=== PATIENT | female | born 1950 | race Caucasian/White ===

== ENCOUNTER 2022-12-28 12:31 | Emergency (ER) | payer MEDICARE, OTHER, SELFPAY ==
[2022-12-28 12:37] VITALS: BP 190/81; PULSE 63; RESP 20; TEMP 36.6; O2SAT 99; BMI 22.7
--- NOTE | 2022-12-28 13:02 | DI.US.S_ITS ---
PROCEDURE: US PERIPH VENOUS LOW EXTREM LT INDICATIONS: SWELLING AND PAIN AFTER TRAVEL TECHNIQUE: Real-time imaging, as well as color and pulse Doppler interrogation, were performed of the lower extremity deep veins from the inguinal ligament to the popliteal fossa, with documentation of the visualized calf veins. COMPARISON: None. FINDINGS: The common femoral, femoral, popliteal, and the visualized calf veins are normally compressible, and free of intraluminal thrombus. Color and pulse Doppler demonstrate normal phasic intraluminal flow. There is normal augmentation response to distal compression maneuver. A Roberson's cyst measures 4.7 x 1.0 x 2.3 cm. Distal to the Roberson's cyst a complex fluid collection measures 3.7 x 0.6 x 1.6 cm, likely a ruptured Roberson cyst. IMPRESSION: 1. No findings of lower extremity deep venous thrombosis. 2. Ruptured Roberson's cyst. Dictated by: Paco Sheikh M.D. on 12/28/2022 at 13:44 Approved by: Paco Sheikh M.D. on 12/28/2022 at 13:44
[2022-12-28 14:08] VITALS: O2SAT 96
[2022-12-28 14:09] VITALS: BP 190/78; PULSE 63; PULSE 64; O2SAT 99
--- NOTE | 2022-12-28 14:21 | ED.LOWEXIN ---
HPI - Extremity Injury (Lower) <WENDY Hancock - Last Filed: 12/28/22 14:34> General Chief Complaint: Extremity Injury, Lower Stated Complaint: Leg swelling, Pain Time Seen by Provider: 12/28/22 14:07 Source: patient Mode of arrival: Ambulatory History of Present Illness HPI Narrative: This is a 72 year old female who presents to the emergency department with left lower leg swelling and pain which has been progressive since her [address] She denies any recent injury. States that she has swelling and some tenderness behind her left knee and on the medial aspect into her proximal calf. She states that she plays pickleball frequently but has not had any injuries. States that her mom from a blood clot suddenly at a young age so she was worried about this and came in for evaluation before a trip. She denies history of gout, fever chills, discoloration to the skin or rash. Related Data Allergies Allergy/AdvReac Type Severity Reaction Status Date / Time No Known Drug Allergies Allergy Verified 12/28/22 12:43 Review of Systems <WENDY Hancock - Last Filed: 12/28/22 14:34> Review of Systems ROS Unobtainable: All systems reviewed & are unremarkable except as noted in HPI and below Patient History <WENDY Hancock - Last Filed: 12/28/22 14:34> Social History Smoking Status: Never smoker Smoking Status: Never smoker alcohol intake frequency: 0-2 drinks per day Alcohol type: hard liquor Substance Use Type: does not use Exam <WENDY Hancock - Last Filed: 12/28/22 14:34> Narrative Exam Narrative: MSK: Left knee without suprapatellar effusion, no tenderness over LCL or MCL, no laxity with varus and valgus, posterior knee with edema, palpable Roberson cyst with edema distally which is soft to palpation, no discoloration or erythema, no prominent vascularity, normal ROM, able to flex and extend against resistance with no deficit. Initial Vital Signs Initial Vital Signs: Vital Signs Temperature 98 F 12/28/22 12:37 Pulse Rate 63 12/28/22 12:37 Respiratory Rate 20 12/28/22 12:37 Blood Pressure 190/81 H 12/28/22 12:37 Pulse Oximetry 99 12/28/22 12:37 Oxygen Delivery Method Room Air 12/28/22 12:37 <Henrietta Reyez DO - Last Filed: 12/28/22 19:07> Initial Vital Signs Initial Vital Signs: Vital Signs Temperature 98 F 12/28/22 12:37 Pulse Rate 63 12/28/22 12:37 Respiratory Rate 20 12/28/22 12:37 Blood Pressure 190/81 H 12/28/22 12:37 Pulse Oximetry 99 12/28/22 12:37 Oxygen Delivery Method Room Air 12/28/22 12:37 Course <WENDY Hancock - Last Filed: 12/28/22 14:34> Orders Ordered: ED Orders 12/28/22 13:02 US periph venous low extrem lt Stat Vital Signs Vital signs: Vital Signs - 8 hr 12/28/22 12:37 12/28/22 14:09 12/28/22 14:08 Temperature 98 F Pulse Rate 63 Pulse Rate [Left Dorsalis Pedis] 64 Respiratory Rate 20 Blood Pressure 190/81 H Pulse Oximetry 99 96 Oxygen Delivery Method Room Air 12/28/22 14:09 12/28/22 14:09 Temperature Pulse Rate 63 Pulse Rate [Left Dorsalis Pedis] Respiratory Rate Blood Pressure 190/78 H Pulse Oximetry 99 Oxygen Delivery Method <Henrietta Reyez DO - Last Filed: 12/28/22 19:07> Orders Ordered: ED Orders 12/28/22 13:02 US periph venous low extrem lt Stat Vital Signs Vital signs: Vital Signs - 8 hr 12/28/22 12:37 12/28/22 14:09 12/28/22 14:08 Temperature 98 F Pulse Rate 63 Pulse Rate [Left Dorsalis Pedis] 64 Respiratory Rate 20 Blood Pressure 190/81 H Pulse Oximetry 99 96 Oxygen Delivery Method Room Air 12/28/22 14:09 12/28/22 14:09 Temperature Pulse Rate 63 Pulse Rate [Left Dorsalis Pedis] Respiratory Rate Blood Pressure 190/78 H Pulse Oximetry 99 Oxygen Delivery Method MDM - Extremity Injury (Lower) <WENDY Hancock - Last Filed: 12/28/22 14:34> Imaging Data US - DVT: Radiologist's Impression: [place] [address] Ultrasound Report Signed Patient: Aruna Haley MR#: [id number] : 1950 Acct:[id number] Age/Sex: 72 / F Date of Service: 12/28/22 Loc: ED Accession Number: [id number] ?? Procedure: US periph venous low extrem lt Ordering Provider: Henrietta Reyez D.O. PROCEDURE:? US PERIPH VENOUS LOW EXTREM LT ? INDICATIONS:? SWELLING AND PAIN AFTER TRAVEL ? TECHNIQUE:? Real-time imaging, as well as color and pulse Doppler interrogation, were performed of the lower extremity deep veins from the inguinal ligament to the popliteal fossa, with documentation of the visualized calf veins.? ? COMPARISON:? None. ? FINDINGS:? The common femoral, femoral, popliteal, and the visualized calf veins are normally compressible, and free of intraluminal thrombus.? Color and pulse Doppler demonstrate normal phasic intraluminal flow.? There is normal augmentation response to distal compression maneuver.? ? A Roberson's cyst measures 4.7 x 1.0 x 2.3 cm.? Distal to the Roberson's cyst a complex fluid collection measures 3.7 x 0.6 x 1.6 cm, likely a ruptured Roberson cyst.? ? ? IMPRESSION:? 1. No findings of lower extremity deep venous thrombosis. ? 2.? Ruptured Roberson's cyst. ? Dictated by: Paco Sheikh M.D. on 12/28/2022 at 13:44 ? ? Approved by: Paco Sheikh M.D. on 12/28/2022 at 13:44 ? MDM Narrative Medical decision making narrative: Chief Complaint: Leg swelling concerning for DVT Multiple etiologies for patient's complaint considered including, but not limited to: DVT, Roberson cyst, knee effusion I have independently reviewed the patient's vital signs and nursing notes as well as prior records if available. Course of Care: On exam, patient does not have any prominent vessels or circumferential edema, she has edema to the posterior knee in a palpable Roberson cyst, no suprapatellar effusion, she does not have pain in her left knee with bearing weight or any range of motion deficit. DVT ultrasound is negative for DVT there is a Roberson cyst measuring 4.7 x 1.0 x 2.3 cm and distal to the Roberson cyst is a complex fluid collection measuring 3.7 x 0.6 x 1.6 cm and this is likely the ruptured Roberson cyst. Patient was given Octavio bandages for compression, encourage use topical Voltaren gel or leave/Tylenol as needed for pain. She was given a copy of her ultrasound report. Social considerations that may affect disposition: none Questions are addressed and there is agreement with the plan and for follow-up. I consulted with the ED attending physician Dr. Reyez as needed for higher level of care considerations and they were available for discussion and recommendations regarding plan of care and diagnostic testing. Patient is appropriate for outpatient management. Discharge Plan Departure Patient Disposition: Home Clinical Impression: Encounter for assessment for deep vein thrombosis (DVT), Roberson's cyst, ruptured Instructions: Roberson Cyst, How to Put on Compression Socks Activity Restrictions/Additional Instructions: *You have been diagnosed with a partially ruptured Roberson cyst with swelling behind your left knee. You have an interesting presentation and I am glad you came in for evaluation. No mobility restrictions, you can use a compressive Octavio bandage to help with this and use an occasional loose or pain pill as needed. Tylenol and leave should be adequate. Voltaren gel/diclofenac gel may be helpful for pain in you can apply it up to 4 times a day. This [place] you are going to looks absolutely incredible, I may have to look into this experience because of you, thank you for sharing. Have a great trip, it was nice to meet you. *What to do: *Please continue to take your regular medications as directed. [ ] New medication prescriptions sent to your pharmacy: [ ] [ ] New medication written as a paper prescription [x ] No new medications given *Please call and schedule follow up with your primary care provider in 2-3 days, at least for an update. Let them know you were seen in the Emergency Department for the above problem. We will electronically transmit a record of today's note if your PCP or specialist is in our system. *If you do not have a primary care provider please contact [phone] to establish care with one of the [facility] primary care providers. *Return to the Emergency Department for worsening symptoms, inability to keep liquids down, fever greater than 101F, chills, or other concerning symptom. Stand Alone Forms: Patient Portal/API <Henrietta Reyez, DO - Last Filed: 12/28/22 19:07> Cosign ED Attending Cosignature Attestation: I was immediately available in the department for consultation. Documentation has been reviewed.
== END 2022-12-28 14:29 | disposition home or self-care (01) ==
PROVIDERS: Emergency Provider Nurse Practitioner Critical Care Medicine
DX: I82.402 Acute embolism and thrombosis of unspecified deep veins of left lower extremity (principal); M66.0 Rupture of popliteal cyst
CPT/HCPCS: 93971; 99281; 99283